=== PATIENT | female | born 2000 | race Caucasian/White ===

== ENCOUNTER 2020-01-12 09:52 | Emergency (ER) | payer OTHER, SELFPAY ==
[2020-01-12 10:30] VITALS: BP 126/77; PULSE 77; RESP 18; TEMP 37; O2SAT 98; BMI 21.9
--- NOTE | 2020-01-12 10:45 | HMH.EDUTC ---
[facility] Clinical Impression: Encounter for laboratory testing for COVID-19 virus Disposition: Home, Self-Care Condition on Discharge: Good Instructions: Preventing the Spread of Coronavirus Discharge Instructions Additional Instructions: *Monitor Temp, Over the counter Motrin or Tylenol as directed/as needed Tylenol every 4 hours and Motrin every 6 hours (as long as your family doctor has told you that you can take it) for fever or pain. and straight to ER if unable to lower temp less than 101.0 after medication given *Warm salt water gargles may help to soothe the throat *Throat Lozenges *Warm fluids like tea with honey may help to soothe the throat *Sleep elevated *Humidifier/Vaporizer *Flonase 2 sprays in each nostril daily but be aware that it may take 2-3 days before you notice improvement Follow up IMMEDIATELY for new or worsening symptoms or no Noticeable improvement over the next 48-72 hours. 911 for difficulty breathing or swallowing You was tested for today for COVID19 your test result should be back in the next 24-48 hours, you may call to the [facility] tomorrow to see if your test results are back and the result [phone] [facility] hours are 9am-9pm You was given a handout with instructions for Self Quarantine and Self isolation for while you wait on test results and what to do if they are positive If you are positive the Health Dept will be contacting you also Referrals: Jhoan Beasley MD [Primary Care Provider] - As needed Forms: Work/School Release Time of Disposition: 10:47 Medical Decision Making - Rowdy Inquiry Pt receiving controlled substance: No Rowdy was queried for this patient: No Vital Signs: 01/12/20 10:30 Temperature 98.6 F Temperature Source Oral Pulse Rate [Right Brachial] 77 Respiratory Rate 18 Blood Pressure [Right Arm] 126/77 Blood Pressure Mean [Right Arm] 93 Blood Pressure Source [Right Arm] Automatic Cuff Blood Pressure Position [Right Arm] Sitting 02 Sat by Pulse Oximetry 98 Oxygen Delivery Method Room Air Orders (Tests/Meds): ORDERS Category Date Time Status Covid-19 Nasal PCR Sendout [facility] 01/12/20 10:19 [place] [facility] [place] - General Stated complaint: Covid test Time Seen by Provider: 01/12/20 10:45 Mode of Arrival: Ambulatory Source of Information: Patient Limitations: No Limitations Description of Symptoms (Recalled from Triage Doc. by RN): PATIENT REQUESTING COVID TEST FOR WORK. 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 I have reviewed the patient's past medical history: Yes - Social History Alcohol Intake: never Occupational Status: other ROS Obtained: Yes All systems reviewed & no additional complaints, Yes Systems reviewed as appropriate & no additional complaints - Constitutional Constitutional: Reports system reviewed and no additional complaints, except as docu, Denies body ache, Denies chills, Denies fever(s), Denies headache(s) - ENT Ears, Nose, Mouth, and Throat: Reports system reviewed and no additional complaints, except as do
[2020-01-12 10:58] VITALS: BP 126/77; PULSE 77; RESP 18; TEMP 37; O2SAT 98
[2020-01-13 15:53] LABS: Covid-19 Nasal PCR Sendout Lex Not Detected
== END 2020-01-12 11:00 | disposition home or self-care (01) ==
PROVIDERS: Emergency Provider Nurse Practitioner; PCP Specialist
DX: Z20.828 Contact with and (suspected) exposure to other viral communicable diseases (principal)
CPT/HCPCS: 99201; U0004

== ENCOUNTER 2020-09-20 23:26 | Emergency (ER) | payer BC, SELFPAY ==
[2020-09-20 23:27] VITALS: BP 125/78; PULSE 72; RESP 16; TEMP 36.8; O2SAT 99; BMI 21.1
[2020-09-20 23:33] VITALS: BMI 21.4
[2020-09-20 23:37] LABS: Microscopic, Urine URINE MICROSCOPIC (MICROSCOPIC)
[2020-09-20 23:40] LABS: Appearance,Urine SL CLOUDY (Clear); Bilirubin,Urine Negative (Negative); Blood, Urine 2+ (Negative); Color,Urine YELLOW (Yellow); Glucose,Urine (UA) Negative (Negative); Ketones,Urine TRACE (Negative); Leukocyte Esterase,Urine Negative (Negative); Nitrate,Urine Negative (Negative); Protein,Urine Negative (Negative); Urobilinogen,Urine 0.2 EU/dl (0.2)
[2020-09-20 23:42] LABS: Urine Pregnancy, HCG Qual. Negative (Negative)
[2020-09-20 23:57] LABS: Bacteria,Urine 1+ /lpf
--- NOTE | 2020-09-21 00:01 | CT_ITS ---
PROCEDURE INFORMATION: Exam: CT Abdomen And Pelvis With Contrast Exam date and time: 09/21/2020 12:01 AM Age: 19 years old Clinical indication: Abdominal pain; Epigastric; Additional info: Midepigastric pain TECHNIQUE: Imaging protocol: Computed tomography of the abdomen and pelvis with contrast. Radiation optimization: All CT scans at this facility use at least one of these dose optimization techniques: automated exposure control; mA and/or kV adjustment per patient size (includes targeted exams where dose is matched to clinical indication); or iterative reconstruction. Contrast material: ISOVUE; Contrast volume: 75 ml; Contrast route: IV; COMPARISON: No relevant prior studies available. FINDINGS: Lungs: No bibasilar consolidation. Liver: 1.2 cm too small to characterize hypodensity in the left hepatic lobe. Gallbladder and bile ducts: No calcified stones. No ductal dilation. Pancreas: Non-specific soft tissue fullness in the region of pancreatic head. Spleen: Unremarkable. Adrenal glands: No mass. Kidneys and ureters: Few punctate nonobstructing right renal calculi. No hydronephrosis. Stomach and bowel: Nonobstructive bowel gas pattern. Appendix: Unremarkable appendix. Intraperitoneal space: No pneumoperitoneum. No ascites. Vasculature: No abdominal aortic aneurysm. Lymph nodes: No enlarged lymph nodes. Urinary bladder: Unremarkable as visualized. Reproductive: Unremarkable as visualized. Bones/joints: No suspicious osseous lesion. No acute fracture. Soft tissues: No suspicious mass. IMPRESSION: Non-specific soft tissue fullness in the region of pancreatic head. This is nonspecific, possibly early pancreatitis, however mass lesion is possible. Recommend correlation with MRI pancreas.
[2020-09-21 00:03] LABS: Basophils # 0.1 K/mm3 (0-0.2); Basophils % 0.5 % (0.1-2.0); Eosinophils # 0.1 K/mm3 (0.0-0.4); Eosinophils % 1.3 % (0.1-12.0); Hematocrit 38.5 % (37.0-47.0); Hemoglobin 13.4 g/dL (12.2-16.2); Lymphocytes # 2.3 K/mm3 (0.7-4.5); Lymphocytes % 23.2 % (10-50); Mean Corpuscular HGB Conc 34.8 g/dL (31.8-35.4); Mean Corpuscular Hemoglobin 30.3 pg (27.0-31.2); Mean Corpuscular Volume 87.1 fl (81-99); Monocytes # 0.6 K/mm3 (0.1-1.0); Monocytes % 6.5 % (1.7-9.3); Neutrophils # 6.8 K/mm3 (1.8-7.8); Neutrophils % 68.5 % (37.0-80.0); Platelet Count 258 K/mm3 (142-424); Red Blood Count 4.42 M/mm3 (4.20-5.40); White Blood Count 9.9 K/mm3 (4.5-13.0)
--- NOTE | 2020-09-21 00:10 | PC.NURSE ---
pt finished oral contrast.
[2020-09-21 00:14] LABS: Alanine Aminotransferase 13 U/L (12-78); Albumin Level 4.4 g/dl (3.5-5.0); Albumin/Globulin Ratio 1.6 (1.1-1.8); Alkaline Phosphatase 80 U/L (38-126); Amylase 84 U/L (30-110); Anion Gap 14.8 mEq/L (5-15); Aspartate Amino Transferase 22 U/L (14-36); Bilirubin,Total 0.7 mg/dl (0.2-1.3); Blood Urea Nitrogen 16 mg/dl (7-17); Calcium 8.7 mg/dl (8.4-10.2); Carbon Dioxide 24 mmol/L (22.0-30.0); Chloride 107 mmol/L (98-107); Creatinine Clearance Estimated 116 mL/min (50-200); Estimated Glomerular Filt Rate 91 ml/min (>60); GFR (African American) 111 ML/MIN (>60); Globulin 2.7 g/dL (1.3-3.2); Glucose 93 mg/dl (74-100); Lipase 125 U/L (23-300); Potassium 3.8 mmoL/L (3.5-5.1); Sodium 142 mmol/L (136-145); Total Protein,Serum 7.1 g/dl (6.3-8.2)
[2020-09-21 00:31] LABS: Erythrocyte Sedimentation Rate 13 mm/hr (0-20)
--- NOTE | 2020-09-21 00:48 | HMH.EDNVD ---
ED Disposition Clinical Impression: Abdominal pain Qualifiers: Abdominal location: epigastric Qualified Code(s): R10.13 - Epigastric pain Disposition: Home, Self-Care Condition on Discharge: Good Instructions: DI for Acute Abdominal Pain Additional Instructions: please call pcp for follow up Referrals: Jhoan Beasley MD [Primary Care Provider] - - Critical Care Critical Care Time: No Attestation: On 09/20/20, the high probability of a clinically significant, sudden or life threatening deterioration of the following system(s) required my full and direct attention, intervention and personal management. The time I documented below is in addition to time spent performing reported procedures but includes the following listed in this critical care notation. Medical Decision Making - Medical Records Medical records reviewed: Yes: I reviewed the patient's medical records. - Rowdy Inquiry Pt receiving controlled substance: No Vital Signs: 09/20/20 23:27 09/21/20 01:57 09/21/20 02:00 Temperature 98.3 F Temperature Source Oral Pulse Rate 84 68 Pulse Rate [Right] 72 Respiratory Rate 16 Blood Pressure 108/47 L 104/51 L Blood Pressure [Right Arm] 125/78 Blood Pressure Mean 74 69 Blood Pressure Mean [Right Arm] 93 02 Sat by Pulse Oximetry 99 99 98 09/21/20 02:30 Temperature Temperature Source Pulse Rate 73 Pulse Rate [Right] Respiratory Rate Blood Pressure 100/53 L Blood Pressure [Right Arm] Blood Pressure Mean 63 Blood Pressure Mean [Right Arm] 02 Sat by Pulse Oximetry 98 - Lab Data Lab results reviewed: Yes: I reviewed the patient's lab results. Lab Results 09/20/20 23:32: Urine Color Yellow, Urine Appearance Sl cloudy, Urine pH 7.0, Ur Specific [place] 1.020, Urine Protein Negative, Urine Glucose (UA) Negative, Urine Ketones Trace, Urine Blood 2+, Urine Nitrate Negative, Urine Bilirubin Negative, Urine Urobilinogen 0.2, Ur Leukocyte Esterase Negative, Urine RBC 5-10, Urine WBC 3-5, Ur Squamous Epith Cells 3-5, Urine Bacteria 1+ 09/20/20 23:32: Urine HCG, Qual Negative 09/20/20 23:32: Urine Opiates Screen Negative, Urine Methadone Screen Negative, Ur Barbituates Screen Negative, Ur Phencyclidine Scrn Negative, Ur Amphetamines Screen Negative, U Benzodiazepines Scrn Negative, Urine Cocaine Screen Negative, U Marijuana (THC) Screen Negative 09/20/20 23:56: WBC 9.9, RBC 4.42, Hgb 13.4, Hct 38.5, MCV 87.1, MCH 30.3, MCHC 34.8, RDW 13.0, Plt Count 258, MPV 9.0, Neut % (Auto) 68.5, Lymph % (Auto) 23.2, [place] % (Auto) 6.5, Eos % (Auto) 1.3, Baso % (Auto) 0.5, Neut # (Auto) 6.8, Lymph # (Auto) 2.3, [place] # (Auto) 0.6, Eos # (Auto) 0.1, Baso # (Auto) 0.1, ESR 13 09/20/20 23:56: Sodium 142, Potassium 3.8, Chloride 107, Carbon Dioxide 24, Anion Gap 14.8, BUN 16, Creatinine 0.80, Estimated Creat Clear 116, Estimated GFR 91, Est GFR ( Amer) 111, Glucose 93, Calcium 8.7, Total Bilirubin 0.7, AST 22, ALT 13, Alkaline Phosphatase 80, C-Reactive Protein 9.0 H, Total Protein 7.1, Albumin 4.4, Globulin 2.7, Albumin/Globulin Ratio 1.6, Amylase 84, Lipase 125 Result diagrams: 09/20/20 23:56 09/20/20 23:56 Orders (Tests/Meds): ED MEDICATIONS Generic Name Dose Route Start Last Admin Trade Name Freq PRN Reason Stop Dose Admin Sodium Chloride 1,000 mls @ 999 mls/hr 09/20/20 23:45 09/20/20 23:53 Sod Chlor 0.9% 1000ml Bag IV 09/21/20 00:45 999 mls/hr .Q1H1M [place] Administration Sodium Chloride 8 ml 09/20/20 23:46 Sodium Chloride 0.9% 10ml Vial IV 10/20/20 23:45 NEEDED PRN dilute pepcid Discontinued Medications Generic Name Dose Route Start Last Admin Trade Name Freq PRN Reason Stop Dose Admin Diatrizoate Meglum/Diatrizoate Sod 30 ml 09/20/20 23:35 09/20/20 23:52 Diatrizoate Antonella 66% & Diatrizoate Na 10% 30ml Udc PO 09/20/20 23:36 30 ml ONCE ONE Administration Famotidine 20 mg 09/20/20 23:46 09/20/20 23:53 Famotidine 20mg/2ml Vial IV
[2020-09-21 00:56] LABS: Barbiturates Screen,Urine Negative ng/ml (<200); Benzodiazepines Screen,Urine Negative ng/ml (<200)
[2020-09-21 00:57] LABS: Amphetamine/Metha Screen,Urine Negative ng/ml (<1000); Cannabinoid Screen,Urine Negative ng/ml (<50)
[2020-09-21 00:58] LABS: Cocaine Screen,Urine Negative ng/ml (<300)
[2020-09-21 00:59] LABS: Methadone Screen,Urine Negative ng/ml (<300); Opiate Screen,Urine Negative ng/ml (<300)
[2020-09-21 01:00] LABS: Phencyclidine Screen,Urine Negative ng/ml (<25)
[2020-09-21 01:57] VITALS: BP 108/47; PULSE 84; O2SAT 99
[2020-09-21 02:00] VITALS: BP 104/51; PULSE 68; O2SAT 98
[2020-09-21 02:30] VITALS: BP 100/53; PULSE 73; O2SAT 98
[2020-09-21 03:17] VITALS: BP 109/58; PULSE 73; RESP 16; TEMP 36.7; O2SAT 99
== END 2020-09-21 03:19 | disposition home or self-care (01) ==
PROVIDERS: Emergency Provider Emergency Medicine; PCP Specialist
DX: R10.13 Epigastric pain (principal)
CPT/HCPCS: 74177; 80053; 80305; 81001; 81025; 82150; 83690; 85025; 85651; 86140; 96365; 96375; 99283; J2405; Q9967

== ENCOUNTER 2020-10-05 11:45 | Emergency (ER) | payer BC, SELFPAY ==
--- NOTE | 2020-10-05 12:42 | HMH.EDUTC ---
[facility] [place] Clinical Impression: Seasonal allergies, Exposure to COVID-19 virus Disposition: Home, Self-Care Condition on Discharge: Good Instructions: Allergic Rhinitis, Preventing the Spread of Coronavirus Discharge Instructions Additional Instructions: Drink plenty of fluids. Take tylenol for pain or fever. Return if you begin to have difficulty breathing. Follow up with your regular doctor. GO TO THE ER FOR ANY WORSENING SYMPTOMS Quarantine until you know the results of your covid-19 test. If it is positive, the health department should call you and give you further instructions about your length of Quarantine and other thing. Prescriptions: Fluticasone Propionate [Flonase 50mcg nasal spray 16gm] 1 spr NS BID 30 Days #1 bottle Transmission Status: Received by [id number] Cetirizine HCl [Zyrtec] 10 mg PO DAILY 30 Days #30 cap Transmission Status: Received by [id number] Referrals: Provider,Referral, [Primary Care Provider] - Forms: Work/School Release Time of Disposition: 12:53 Medical Decision Making - Medical Records Medical records reviewed: No: I reviewed the patient's medical records. - Rowdy Inquiry Pt receiving controlled substance: No Vital Signs: 10/05/20 13:00 10/05/20 13:35 Temperature 98.2 F 98.2 F Temperature Source Oral Pulse Rate 87 Pulse Rate [Left] 87 Respiratory Rate 16 16 Blood Pressure 114/75 Blood Pressure [Right Arm] 113/75 Blood Pressure Mean [Right Arm] 87 02 Sat by Pulse Oximetry 98 [facility] [place] - General Stated complaint: covid test Time Seen by Provider: 10/05/20 12:42 - History of Present Illness Provider Complaint: She states that she was at her work this morning when she started having nasal congestion. She states that she has a history of seasonal allergies and she thinks that is what's going on now. She denies any known covid exposure. She denies that she feels bad in any way. She denies fever/chills/body aches. - Related Data Previous Rx's Medication Instructions Recorded Cetirizine HCl [Zyrtec] 10 mg PO DAILY 30 Days #30 cap 10/05/20 Fluticasone Propionate [Flonase 1 spr NS BID 30 Days #1 bottle 10/05/20 50mcg nasal spray 16gm] Allergies Allergy/AdvReac Type Severity Reaction Status Date / Time No Known Allergies Allergy Verified 09/20/20 23:33 [facility] History - Hepatitis A Screen Attestation statement:: This patient has been screened for Hepatitis A risk factors. I have reviewed the patient's past medical history: Yes - Social History Alcohol Intake: never Occupational Status: employed ROS Obtained: Yes All systems reviewed & no additional complaints - Constitutional Constitutional: Denies chills, Denies fever(s), Denies poor appetite, Denies malaise - Eyes Eyes: Reports itchy eyes - ENT Ears, Nose, Mouth, and Throat: Reports as per HPI - Cardiovascular Cardiovascular: Denies chest pain - Respiratory Respiratory: Denies chest congestion, Reports cough, Denies dyspnea, Denies stridor, Denies wheezing - Musculoskeletal Musculoskeletal: Denies joint pain - Integumentary/Breasts Skin/Breast: Denies rash Physical Exam - General General appearance: alert, in no apparent distress - Head Head exam: atraumatic, normocephalic, normal inspection - Eye Eye exam: Present: normal appearance, PERRL, EOMI - ENT ENT exam: Present: normal exam, normal oropharynx, mucous membranes moist, TM's normal bilaterally, normal external ear exam - Neck Neck exam: Present: normal inspection, full ROM, trachea midline. Absent: meningismus, lymphadenopathy - Chest Chest inspection: Present: normal inspection, symmetric chest wall rise. Absent: tenderness - Respiratory Respiratory exam: Present: normal lung sounds bilaterally. Absent: respiratory distress - Cardiovascular Cardiovascular exam: Present: regular rate, normal rhythm. Absent: JVD - Abdominal Exam Abdom
[2020-10-05 13:00] VITALS: BP 113/75; PULSE 87; RESP 16; TEMP 36.8; O2SAT 98; BMI 21.1
[2020-10-05 13:35] VITALS: BP 114/75; PULSE 87; RESP 16; TEMP 36.8
--- NOTE | 2020-10-05 17:38 | PC.NURSE ---
pt notified with positive covid results.
== END 2020-10-05 13:36 | disposition home or self-care (01) ==
PROVIDERS: Emergency Provider Nurse Practitioner Family
DX: U07.1 COVID-19 (principal); J30.9 Allergic rhinitis, unspecified
CPT/HCPCS: 99203; G0463; U0003

== ENCOUNTER → 2021-03-25 16:01 | Outpatient (CLI) | payer BC, SELFPAY | PROVIDERS: PCP Specialist; Visit Provider Specialist | DX: Z11.1 Encounter for screening for respiratory tuberculosis (principal) ==

== ENCOUNTER → 2022-08-08 07:43 | Outpatient (CLI) | payer BC, SELFPAY ==
[2022-08-08 07:47] LABS: Microscopic, Urine URINE MICROSCOPIC (MICROSCOPIC)
[2022-08-08 08:06] LABS: Basophils % 0.2 % (0.1-2.0); Eosinophils # 0.1 K/mm3 (0.0-0.4); Eosinophils % 1.3 % (0.1-12.0); Hemoglobin 13.5 g/dL (12.2-16.2); Lymphocytes # 1.9 K/mm3 (0.7-4.5); Lymphocytes % 33.9 % (10-50); Mean Corpuscular Hemoglobin 28.7 pg (27.0-31.2); Mean Corpuscular Volume 86.9 fl (81-99); Mean Platelet Volume 9.3 fl (7.4-10.4); Monocytes # 0.4 K/mm3 (0.1-1.0); Monocytes % 7.4 % (1.7-9.3); Neutrophils # 3.2 K/mm3 (1.8-7.8); Neutrophils % 57.2 % (37.0-80.0); Platelet Count 283 K/mm3 (142-424); Red Blood Count 4.72 M/mm3 (4.20-5.40); Red Cell Distribution Width 13.1 % (11.5-17.5); White Blood Count 5.6 K/mm3 (4.8-10.8)
[2022-08-08 08:16] LABS: Appearance,Urine CLEAR (Clear); Bilirubin,Urine Negative (Negative); Blood, Urine TRACE-I (Negative); Color,Urine YELLOW (Yellow); Glucose,Urine (UA) Negative (Negative); Ketones,Urine Negative (Negative); Leukocyte Esterase,Urine Negative (Negative); Nitrate,Urine Negative (Negative); Protein,Urine Negative (Negative); Specific Gravity, Urine >= 1.030 (1.005-1.030); Urobilinogen,Urine 0.2 EU/dl (0.2)
[2022-08-08 08:31] LABS: Bacteria,Urine 1+ /lpf; Mucus,Urine Trace /lpf; WBC,Urine Occasional #/hpf (0-3)
[2022-08-08 08:41] LABS: Hemoglobin A1C 4.6 % (4.0-6.0)
[2022-08-08 08:44] LABS: Erythrocyte Sedimentation Rate 12 mm/hr (0-20)
[2022-08-08 09:56] LABS: Alanine Aminotransferase 19 U/L (12-78); Albumin Level 4.4 g/dl (3.5-5.0); Albumin/Globulin Ratio 1.8 (1.1-1.8); Alkaline Phosphatase 63 U/L (38-126); Amylase 77 U/L (30-110); Anion Gap 13.6 mEq/L (5-15); Aspartate Amino Transferase 26 U/L (14-36); Bilirubin,Total 0.5 mg/dl (0.2-1.3); Blood Urea Nitrogen 12 mg/dl (7-17); Calcium 9.2 mg/dl (8.4-10.2); Carbon Dioxide 28 mmol/L (22.0-30.0); Chloride 104 mmol/L (98-107); Chol/HDL Ratio 2.1 (1-3.5); Cholesterol 116 mg/dl (140-200); Estimated Glomerular Filt Rate 105 ml/min (>60); GFR (African American) 127 ML/MIN (>60); Globulin 2.4 g/dL (1.3-3.2); Glucose 85 mg/dl (74-100); HDL Cholesterol 56 mg/dl (40-60); Lipase 91 U/L (23-300); Potassium 4.6 mmoL/L (3.5-5.1); Sodium 141 mmol/L (136-145); Total Protein,Serum 6.8 g/dl (6.3-8.2); Triglycerides 72 mg/dl (30-150); VLDL Cholesterol 14 mg/dL (0-40)
[2022-08-08 10:07] LABS: Direct LDL Cholesterol 52.74 mg/dL (100-129)
[2022-08-08 10:12] LABS: 25-OH Vitamin D, Total 59.6 ng/mL (30-100)
[2022-08-08 10:27] LABS: Thyroid Stimulating Hormone 0.56 uIU/mL (0.465-4.68)
[2022-08-08 10:46] LABS: Vitamin B12 283 pg/mL (239-931)
[2022-08-08 10:58] LABS: Urine Pregnancy, HCG Qual. Negative (Negative)
[2022-08-09 23:34] LABS: Neisseria gonorrhoeae, NAA Negative (Negative)
[2022-08-23 07:58] LABS: HIV Screen 4th Generation wRfx Non Reactive
[2022-08-23 07:59] LABS: Neisseria gonorrhoeae, NAA NEGATIVE
== END ==
PROVIDERS: PCP Nurse Practitioner Family; Visit Provider Nurse Practitioner Family
DX: R10.13 Epigastric pain (principal); R53.83 Other fatigue; F32.A Depression, unspecified; F41.9 Anxiety disorder, unspecified; Z13.220 Encounter for screening for lipoid disorders; Z13.1 Encounter for screening for diabetes mellitus; Z79.899 Other long term (current) drug therapy
CPT/HCPCS: 36415; 80053; 80061; 81001; 81025; 82150; 82306; 82607; 83036; 83690; 84443; 85025; 85651; 86140; 86593; 86703; 87086; 87491; 87591; G0432

== ENCOUNTER → 2022-09-24 07:56 | Outpatient (CLI) | payer BC, SELFPAY ==
--- NOTE | 2022-09-24 07:56 | US_ITS ---
FINAL REPORT CLINICAL HISTORY: palpable RLQ mass with pain COMPARISON: None FINDINGS: Sonographic images of the abdomen were obtained. The liver has an unremarkable appearance with normal echogenicity. The gallbladder has an unremarkable appearance without evidence of gallstones. There is no evidence of biliary ductal dilatation. The common hepatic duct measures 3 mm, which is within normal limits. The pancreas is partially obscured. The spleen size is normal. The right kidney measures 9.9 in length. The left kidney measures 9.4 in length. There is normal renal echogenicity. There is no evidence of hydronephrosis. The aorta has an unremarkable appearance. Limited images of the inferior vena cava are unremarkable. No evidence of mass in the palpable region. IMPRESSION: No acute findings. No evidence of mass in the palpable region. Reviewed, Interpreted and Dictated by Darnell Keller III, MD Transcribed by Chuyita Whitmore Authenticated and [facility]
== END ==
LOC: RAD 07:56
PROVIDERS: PCP Nurse Practitioner Family; Visit Provider Nurse Practitioner Family
DX: R10.13 Epigastric pain (principal); R19.03 Right lower quadrant abdominal swelling, mass and lump
CPT/HCPCS: 76700

== ENCOUNTER 2023-07-12 09:45 | Outpatient (CLI) | payer BC, SELFPAY | END 2023-07-12 23:59 | disposition home or self-care (01) | LOC: RAD 09:46 | PROVIDERS: PCP Nurse Practitioner Family; Visit Provider Obstetrics & Gynecology | DX: N97.9 Female infertility, unspecified (principal) ==

== ENCOUNTER 2023-08-20 14:14 | Outpatient (CLI) | payer BC, SELFPAY ==
--- NOTE | 2023-08-20 14:18 | US_ITS ---
PROCEDURE: US TRANSVAGINAL CLINICAL INDICATION: Pelvic pain COMPARISON: CT CT ABDOMEN PELVIS W CON from 09/21/2020 US US ABDOMEN COMPLETE from 09/24/2022 FINDINGS: Transvaginal sonographic images of the pelvis were obtained. UTERUS: 7.5 cm x 4.3cmx 3.2cm anteverted with a combined endometrial thickness of 10.5mm. LEFT OVARY: 4.4cmx2.6 cmx2.5cm with a volume of 14.6ml. There is a corpus luteum in the left ovary measuring 2.2 cm x 1.3 cm x 1.6 cm. There is a follicle measuring 1.9 cm x 1.9 cm x 1.4 cm. There are multiple small peripheral follicles. RIGHT OVARY: 4.3cmx .32cmx2.2cm with a volume of 11.3ml. There is a corpus luteum in the right ovary measuring 1.5 cm X 1.7 cm x 2.2 cm, possibly a small hemorrhagic cyst. There are multiple small peripheral follicles. Both ovaries are seen and appear polycystic. Doppler flow to both ovaries are seen. There is a small amount of fluid in the cul-de-sac. IMPRESSION: 1. Anteverted uterus normal in shape and size. The endometrium is normal at 10.5 mm. It has a trilaminar appearance. 2. Both ovaries are seen and appear polycystic. Within the right ovary is a 2.2 cm possibly hemorrhagic cyst. 3. There is a small amount of fluid in the cul-de-sac. Dictated by: Aguila Reardon MD 08/20/2023 15:20 Aguila Reardon MD in [facility] 08/20/2023 15:20
== END 2023-08-20 23:59 | disposition home or self-care (01) ==
LOC: RAD 14:14
PROVIDERS: PCP Nurse Practitioner Family; Visit Provider Obstetrics & Gynecology
DX: R10.2 Pelvic and perineal pain (principal)
CPT/HCPCS: 76830

== ENCOUNTER 2023-10-02 10:48 | Outpatient (CLI) | payer BC, SELFPAY ==
[2023-10-02 11:16] LABS: Basophils % 0.3 % (0.1-2.0); Eosinophils # 0.1 K/mm3 (0.0-0.4); Eosinophils % 0.5 % (0.1-12.0); Hematocrit 38.9 % (37.0-47.0); Hemoglobin 13.1 g/dL (12.2-16.2); Lymphocytes # 2.2 K/mm3 (0.7-4.5); Lymphocytes % 21.9 % (10-50); Mean Corpuscular HGB Conc 33.7 g/dL (31.8-35.4); Mean Corpuscular Hemoglobin 30.8 pg (27.0-31.2); Mean Corpuscular Volume 91.5 fl (81-99); Mean Platelet Volume 9.5 fl (7.4-10.4); Monocytes # 0.5 K/mm3 (0.1-1.0); Monocytes % 4.5 % (1.7-9.3); Neutrophils # 7.3 K/mm3 (1.8-7.8); Neutrophils % 72.9 % (37.0-80.0); Platelet Count 273 K/mm3 (142-424); Red Blood Count 4.25 M/mm3 (4.20-5.40); Red Cell Distribution Width 13.5 % (11.5-17.5); White Blood Count 10.1 K/mm3 (4.8-10.8)
[2023-10-02 13:27] LABS: HIV (1&2) Antibody Rapid NONREACTIVE (NONREACTIVE)
[2023-10-03 09:14] LABS: Rubella Antibodies, IgG 1.08 index (Immune >0.99)
[2023-10-03 10:13] LABS: HCV Ab Non Reactive (Non Reactive); Hepatitis B Surface Antigen Negative (Negative)
[2023-10-03 13:41] LABS: Rapid Plasma Reagin Ab Titer Non Reactive titer (NonRea<1:1)
[2023-10-05 11:31] LABS: Neisseria gonorrhoeae, NAA Negative (Negative)
== END 2023-10-02 23:59 | disposition home or self-care (01) ==
LOC: LAB 10:49
PROVIDERS: PCP Nurse Practitioner Family; Visit Provider Obstetrics & Gynecology
DX: Z34.90 Encounter for supervision of normal pregnancy, unspecified, unspecified trimester (principal)
CPT/HCPCS: 86803; 86703; 36415; 85025; 86593; 86762; 86850; 87086; 87340; 87491; 87591

== ENCOUNTER 2023-12-30 12:25 | Outpatient (CLI) | payer BC, SELFPAY ==
--- NOTE | 2023-12-30 12:26 | US_ITS ---
PROCEDURE: US OB /MATERNAL DETAIL CLINICAL INDICATION: 20 week US OB Complete-Anatomy Scan COMPARISON: US US TRANSVAGINAL from 08/20/2023 FINDINGS: Transabdominal sonographic images of the pelvis were obtained. From her established due date she is 20 weeks 3 days. Single viable intrauterine gestation. Breech position. Placenta: Posteriorplacenta grade 1. There is a placental Toussaint seen. There is an average amount of fluid. The cervix appears satisfactory. Closed and measuring 3.5 cm in length. Complete survey performed and was unremarkable on the submitted images as in PACS. No discrete anomalies identified on survey imaging by technologist. Active fetus.. Three-vessel cord with satisfactory umbilical cord insertion. 4- chamber heart noted. Situs, aortic arch, LVOT, RVOT, three-vessel view appear normal. Survey of brain & ventricles Unremarkable. Cerebellum, thalamus, choroid plexus, cisterna magna appear normal. Face and neck survey unremarkable. Profile, nasion, lips and nose appeared normal. Diaphragm and chest views unremarkable. Abdomen: Both kidneys noted and unremarkable. Stomach and bladder noted and satisfactory. Spine: Survey of the spine satisfactory with no anomalies identified nor imaged. Cervical, thoracic, lower spine appear normal. Both arms and legs noted. Amniotic Fluid: Adequate. MVP 3.42 cm. Measurements: Average ultrasound age 20weeks 3days. Estimated due date by ultrasound age 0305/15/2024. Estimated weight 344g BPD = 20weeks 4days HC = 20weeks 2days AC = 20weeks 5days FL = 20weeks 0 days Growth Percentile= 37 Heart Rate = 147bpm Cerebellum = 19weeks 6days Humerus = 20weeks 1day HC/AC is 1.15 FL/BPD is 0.66 FL/AC is 0.21 IMPRESSION: 1. Viable fetus in the breech presentation with a posterior placenta grade 1. 2. The fluid is within normal limits with an MVP 3.42 cm. 3. Anatomical scan appears normal. 4. biometry is consistent with the dates. Dictated by: Aguila Reardon MD 12/30/2023 14:10 Aguila Reardon MD in [facility] 12/30/2023 14:10
== END 2023-12-30 23:59 | disposition home or self-care (01) ==
PROVIDERS: PCP Nurse Practitioner Family; Visit Provider Obstetrics & Gynecology
DX: Z36.3 Encounter for antenatal screening for malformations (principal); Z3A.20 20 weeks gestation of pregnancy
CPT/HCPCS: 76811

== ENCOUNTER 2024-01-10 08:22 | Outpatient (CLI) | payer BC, SELFPAY ==
--- NOTE | 2024-01-10 08:23 | US_ITS ---
PROCEDURE: US OB TRANSVAGINAL CLINICAL INDICATION: Cramping in Early COMPARISON: CT CT ABDOMEN PELVIS W CON from 09/21/2020 US US ABDOMEN COMPLETE from 09/24/2022 US US TRANSVAGINAL from 08/20/2023 FINDINGS: Transabdominal and transvaginal sonographic images of the pelvis were obtained. The following parameters are obtained: From her established due date she is 22weeks 0 days Viable fetus in the cephalic presentation with a posterior placenta grade 1. There is a placental Toussaint. The cervix measures 4.4 cm seen transvaginally. heart rate: 153bpm bpm. Amniotic fluid: Subjectively appears normal It appears that the left ovary may be in the pelvis posterior to the cervix. No fluid in the cul-de-sac. Anatomical scan was not performed. IMPRESSION: 1. Viable fetus in the cephalic presentation with a posterior placenta grade 1. 2. Subjectively the fluid appears normal. 3. Cervix is measured transvaginally 4.4 cm in length. 4. The left ovary appears to be posterior to the cervix. 5. No fluid in the cul-de-sac. Dictated by: Aguila Reardon MD 01/10/2024 18:38 Aguila Reardon MD in [facility] 01/10/2024 18:38
== END 2024-01-10 23:59 | disposition home or self-care (01) ==
LOC: RAD 08:23
PROVIDERS: PCP Nurse Practitioner Family; Visit Provider Obstetrics & Gynecology
DX: O26.892 Other specified pregnancy related conditions, second trimester (principal); R10.9 Unspecified abdominal pain; Z3A.22 22 weeks gestation of pregnancy; Z36.86 Encounter for antenatal screening for cervical length
CPT/HCPCS: 76817

== ENCOUNTER 2024-01-25 20:32 | Emergency (ER) | payer BC, SELFPAY ==
[2024-01-25 20:34] VITALS: BP 144/81; PULSE 74; RESP 18; TEMP 36.8; O2SAT 100; BMI 23.1
--- NOTE | 2024-01-25 21:27 | ED_ITS ---
Discharge Plan Disposition Patient Disposition: Home, Self-Care Prescriptions Prescriptions: New nystatin 100,000 unit/gram cream 1 applic topical TID 7 Days Qty: 30 0RF Rx Instructions: apply until there is healing No Action Classic 28 mg iron- 800 mcg tablet 1 tab PO .glen Qty: 30 4RF promethazine 12.5 mg tablet 12.5 mg PO TID PRN (Reason: nausea and vomiting) Qty: 30 1RF Referrals Follow up/Referrals: Carmen Aden APRN [Primary Care Provider] - See instructions Activity Restrictions/Add. Instructions Additional Instructions/Restrictions: As discussed without doing an exam I cannot definitively tell you that this is candidal vaginitis. With your history I suspect this is most likely contact vaginitis. However given the fact that azoles have not worked for you in the past I question the diagnosis however we will try topical nystatin please follow-up with your [employer] doctor as previously instructed Clinical Impressions Clinical Impression: Vaginitis Instructions Patient Instructions: DI for Urinary Tract Infection (UTI), DI for Urinary Tract Infection in Children Print Language Print Language: Montenegrin Discharge ED Provider: Khoi Bradley General Adult HPI General Chief complaint: Urogenital-Female Stated complaint: 24 wks antepartum suspected yeast infection Time Seen by Provider: 01/25/24 21:05 Mode of Arrival: Ambulatory Source of Information: Patient Limitations: No Limitations Description of Symptoms (Recalled from ER Triage Doc. by RN): Pt presents to ED for a possible yeast infection. Pt is 24 weeks . Pt states Monistat does not work for her. Pt is A&O*4. History of Present Illness HPI narrative: Patient is a 23-year-old female who is 24 weeks feeling the baby move no loss of fluid no vaginal bleeding vaginal discharge or contractions who presents today with what she believes is a yeast infection. States she has had numerous in the past has not been on any antibiotics recently from historical standpoint she states that any type of contact irritation causes inflammatory response and she first was diagnosed at the age of 13 when she had curdy white discharge which was consistent with yeast infection but now even very mild soaps etc. will cause this. Related Data Previous Rx's ?Medication ?Instructions ?Recorded vits no.126-ferrous fum 1 tab PO .carroll #30 tabs 10/02/23 28 mg iron-folic acid 800 mcg tablet (Classic ) promethazine 12.5 mg tablet 12.5 mg PO TID PRN nausea and 10/03/23 vomiting #30 tabs nystatin 100,000 unit/gram topical 1 applic topical TID 7 days #30 01/25/24 cream grams Allergies Allergy/AdvReac Type Severity Reaction Status Date / Time No Known Allergies Allergy Verified 01/15/24 09:46 [facility] Disclaimer: The information contained in this section may have been updated after the patient was seen, as this information can be updated by other users. Medical History Depression GERD (gastroesophageal reflux disease) Constipation Anxiety Surgical History No significant past surgical history Family History Father Heart attack Other Alcoholism Diabetes FHx: mental illness Hypertension Substance abuse Social History Smoking Status: Never smoker years smoked: 2 alcohol intake: current alcohol intake frequency: a few times a month substance use type: denies use current occupational status: employed Travel in the last 8 weeks: None marital status: single number of children: 0 Other Medical History Have you received the Flu Vaccine for this season: No Have you received the Pneumonia Vaccine: No ROS Obtained: Yes All systems reviewed & no additional complaints except as documented Physical Exam General General appearance: alert Respiratory Respiratory exam: Present normal lung sounds bilaterally Cardiovascular Cardiovascular exam: Present regular rate Bimanual exam: Present other (Deferred) Neurological Exam Neurological exam: Present alert and oriented X3 Medical Decision Making Medical Records Screening: Per USPSTF and CDC recommendations, given the prevalence of disease in our region, it is our hospital?s policy to screen for HIV and viral Hepatitis for all patients aged 18 and over and those with ongoing risk factors. Rowdy Inquiry Pt receiving controlled substance: No Vital Signs: 01/25/24 20:34 Temperature 98.2 F Temperature Source Oral Pulse Rate [Left] 74 Respiratory Rate 18 Blood Pressure [Right Arm] 144/81 H Blood Pressure Mean [Right Arm] 102 02 Sat by Pulse Oximetry 100 Oxygen Delivery Method Room Air Orders (Tests/Meds): ORDERS Category Date Time Status POCUS Point of Care (ER Only) Stat Exams 01/25/24 21:00 Ordered Medical Decision Narrative: 23-year-old with a history of vaginitis I suspect most likely from contact in the setting of chemicals that are causing localized inflammation and irritation. She does not have any thick white discharge right now from historical standpoint I offered her an exam and told her that I could not differentiate etiologies without doing exam and she understood this but would like to follow- up closely with her [employer] doctor. Given the fact that Monistat has not worked for her we will try topical nystatin. I advised that she stay away from products that have dyes and chemicals and scents etc. She will follow-up closely with her outpatient [employer] doctor. Critical Care Critical Care Time Critical Care Time: No
[2024-01-25 21:28] VITALS: BP 118/72; PULSE 70; RESP 16; TEMP 36.6; O2SAT 98
== END 2024-01-25 21:30 | disposition home or self-care (01) ==
PROVIDERS: Emergency Provider Student in an Organized Health Care Education/Training Program; PCP Nurse Practitioner Family
DX: N76.0 Acute vaginitis (principal)
CPT/HCPCS: 99283

== ENCOUNTER 2024-02-28 07:22 | Outpatient (CLI) | payer BC, SELFPAY ==
[2024-02-28 08:48] LABS: Basophils % 0.2 % (0.1-2.0); Eosinophils % 0.2 % (0.1-12.0); Hematocrit 35.3 % (37.0-47.0); Hemoglobin 12.2 g/dL (12.2-16.2); Lymphocytes # 1.5 K/mm3 (0.7-4.5); Lymphocytes % 14.7 % (10-50); Mean Corpuscular HGB Conc 34.6 g/dL (31.8-35.4); Mean Corpuscular Hemoglobin 30.5 pg (27.0-31.2); Mean Corpuscular Volume 88.3 fl (81-99); Mean Platelet Volume 11.4 fl (7.4-10.4); Monocytes # 0.5 K/mm3 (0.1-1.0); Monocytes % 5.1 % (1.7-9.3); Neutrophils # 8.3 K/mm3 (1.8-7.8); Neutrophils % 79.3 % (37.0-80.0); Platelet Count 189 K/mm3 (142-424); Red Cell Distribution Width 13.2 % (11.5-17.5); White Blood Count 10.4 K/mm3 (4.8-10.8)
[2024-02-28 09:01] LABS: Glucose 1 Hour 109 mg/dL (74-100)
[2024-02-28 14:51] LABS: RPR W/RFX Titers Nonreactive (Nonreactive)
== END 2024-02-28 23:59 | disposition home or self-care (01) ==
PROVIDERS: PCP Nurse Practitioner Family; Visit Provider Obstetrics & Gynecology
DX: Z34.90 Encounter for supervision of normal pregnancy, unspecified, unspecified trimester (principal)
CPT/HCPCS: 36415; 82947; 85025; 86592

== ENCOUNTER 2024-04-03 08:49 | Outpatient (CLI) | payer MEDICAID, BC, SELFPAY ==
--- NOTE | 2024-04-03 08:50 | US_ITS ---
PROCEDURE: US OB BIOPHYSICAL PROFILE CLINICAL INDICATION: SGA COMPARISON: US US OB /MATERNAL DETAIL from 12/30/2023 US US OB TRANSVAGINAL from 01/10/2024 FINDINGS: Transabdominal sonographic images of the uterus were obtained. From her established due date she is 34weeks 0 days. The following parameters are obtained: Viable Fetus in the cephalic presentation with a posterior placenta grade 2. Average ultrasound age is 34weeks 5days Estimated weight 2,448g, 5 lb 6 oz The cervix measures 3.32 cm Measurements: heart Rate = 143bpm BPD = 35weeks 0 days HC = 34weeks 5days AC = 34weeks 5days FL = 34weeks 1day HC/AC is 1.01 FL/BPD is 0.76 FL/AC is 0.22 59 percentile Amniotic fluid index: 10.12cm, MVP 2.86 cm Qualitative AFV:2 Breathing movements: 2 Gross Body Movements: 2 Tone: 2 Biophysical profile score: 8 Doppler evaluation of the umbilical artery: SD ratio: 2.07-2.56. normal Resistive index: 0.55 No obvious anomalies evident.Kidneys, profile, stomach, bladder, four-chamber heart, three-vessel cord appear normal. IMPRESSION: 1. Viable fetus in the cephalic presentation with a posterior placenta grade 2. 2. The fluid is within normal limits with an amniotic fluid index 10.12 cm, MVP 2.86 cm. 3. Biophysical profile is 8/8 with good breathing movement and movement seen. 4. SD ratio is normal 2.07-2.56. 5. Limited anatomical scan appears normal. Dictated by: Aguila Reardon MD 04/04/2024 08:26 Aguila Reardon MD in [place] 04/04/2024 08:26
== END 2024-04-03 23:59 | disposition home or self-care (01) ==
LOC: RAD 08:50
PROVIDERS: PCP Nurse Practitioner Family; Visit Provider Obstetrics & Gynecology
DX: O36.5930 Maternal care for other known or suspected poor fetal growth, third trimester, not applicable or unspecified (principal); Z3A.34 34 weeks gestation of pregnancy
CPT/HCPCS: 76816; 76819; 76820

== ENCOUNTER 2024-04-23 12:55 | Outpatient (CLI) | payer MEDICAID, BC, SELFPAY | END 2024-04-23 23:59 | disposition home or self-care (01) | LOC: LAB.DROPOF 04-27 12:57 | PROVIDERS: PCP Nurse Practitioner Family; Visit Provider Obstetrics & Gynecology | DX: Z34.93 Encounter for supervision of normal pregnancy, unspecified, third trimester (principal) | CPT/HCPCS: 86403 ==

== ENCOUNTER 2024-05-07 09:17 | Inpatient (IN) | payer BC, MEDICAID, SELFPAY ==
[2024-05-07 09:23] VITALS: BMI 26.9
[2024-05-07 09:27] LABS: Microscopic, Urine URINE MICROSCOPIC (MICROSCOPIC)
[2024-05-07 09:30] LABS: Appearance,Urine CLEAR (Clear); Bilirubin,Urine Negative (Negative); Blood, Urine MODERATE (Negative); Color,Urine YELLOW (Yellow); Glucose,Urine (UA) Negative (Negative); Ketones,Urine Negative (Negative); Leukocyte Esterase,Urine SMALL (Negative); Nitrate,Urine Negative (Negative); PH,Urine 6.5 (5.0-8.5); Protein,Urine Negative (Negative); Urobilinogen,Urine 0.2 EU/dl (0.2)
[2024-05-07 09:40] LABS: Squamous Epithelial Cell,Urine Occasional #/hpf (0-5)
[2024-05-07 09:41] LABS: WBC,Urine Occasional #/hpf (0-3)
[2024-05-07 09:47] LABS: Fetal Membrane Rupture (Rapid) Negative (Negative)
[2024-05-07 09:49] LABS: Basophils % 0.3 % (0.1-2.0); Eosinophils % 0.3 % (0.1-12.0); Hematocrit 37.4 % (37.0-47.0); Hemoglobin 13.1 g/dL (12.2-16.2); Lymphocytes # 2.2 K/mm3 (0.7-4.5); Lymphocytes % 19.3 % (10-50); Mean Corpuscular Hemoglobin 30.4 pg (27.0-31.2); Mean Corpuscular Volume 86.8 fl (81-99); Mean Platelet Volume 12.7 fl (7.4-10.4); Monocytes % 8.2 % (1.7-9.3); Neutrophils # 8.3 K/mm3 (1.8-7.8); Neutrophils % 71.6 % (37.0-80.0); Platelet Count 174 K/mm3 (142-424); Red Blood Count 4.31 M/mm3 (4.20-5.40); Red Cell Distribution Width 13.3 % (11.5-17.5); White Blood Count 11.6 K/mm3 (4.8-10.8)
[2024-05-07] MEDS: LACTATED RINGERS 1000ML 1,000 ML 500 ML IV (10:23)
--- NOTE | 2024-05-07 10:36 | P.PNANES_ITS ---
[facility] Disclaimer: The information contained in this section may have been updated after the patient was seen, as this information can be updated by other users. Medical History Depression GERD (gastroesophageal reflux disease) Constipation Anxiety Surgical History No significant past surgical history Family History Father Heart attack Other Alcoholism Diabetes FHx: mental illness Hypertension Substance abuse Social History Smoking Status: Never smoker years smoked: 2 alcohol intake: current alcohol intake frequency: a few times a month substance use type: denies use current occupational status: employed Travel in the last 8 weeks: None marital status: single number of children: 0 Have you lived/traveled outside [place] in past 30 days?: No Contact w/someone who lives/traveled outside US past 30 days?: No Exposure to someone with infectious disease in past 14 days?: No Do you have a fever (greater than 100.4 F or 38 C)?: No Have you tested positive for COVID-19: No Exposed to someone with COVID-19 in past 14 days?: No Do you have a sore throat?: No Do you have a cough?: No Do you have any weakness?: No Do you have any diarrhea?: No Are you experiencing any unusual bleeding?: No Do you have any muscle aches/pain?: No Do you have any abdominal pain?: No Are you experiencing loss of taste or smell?: No [facility] Anesthesia Checklist Patient Identification Patient Identification: Arm Band Structural Data Admitted From: Inpatient Planned Operative Procedure/s: Labor Epidural Consent for Planned Operative Procedure(s) Verified: Yes Verified Documents: History and Physical Additional verifications Anesthesia Reactions: No Neurological Assessment Level of Consciousness: Awake, Alert and Appropriate Anesthesia Plan Anesthesia Risk discussed: Yes Anesthesia Plan: Verified ASA Class: II Anesthesia Type: Epidural
[2024-05-07 11:06] VITALS: BP 125/90; PULSE 75; RESP 19; TEMP 36.6; O2SAT 98; BMI 26.9
[2024-05-07 12:58] LABS: RPR W/RFX Titers Nonreactive (Nonreactive)
--- NOTE | 2024-05-07 14:14 | EXP.HP ---
History of Present Illness *Reason for visit:: Labor *History of present illness: Lia Neely is a 23-year-old at 38 weeks and 6 days gestation who presented to labor and delivery with regular painful contractions. Her has been uncomplicated. On presentation patient endorsed good movement and denies any leakage of fluid or vaginal bleeding. B+, antibody negative, rubella immune, hepatitis B negative, hepatitis C negative, RPR negative, HIV negative 1 hour GTT: 109 GBS negative PFSH PFS Disclaimer: The information contained in this section may have been updated after the patient was seen, as this information can be updated by other users. Medical History Depression GERD (gastroesophageal reflux disease) Constipation Anxiety Surgical History No significant past surgical history Family History Father Heart attack Other Alcoholism Diabetes FHx: mental illness Hypertension Substance abuse Social History (Updated 05/07/24 @ 11:18 by Skylar Hernandez RN) Smoking Status: Never smoker years smoked: 2 alcohol intake: current alcohol intake frequency: a few times a month substance use type: denies use current occupational status: employed Travel in the last 8 weeks: None marital status: single number of children: 0 Have you lived/traveled outside US in past 30 days?: No Contact w/someone who lives/traveled outside US past 30 days?: No Exposure to someone with infectious disease in past 14 days?: No Do you have a fever (greater than 100.4 F or 38 C)?: No Have you tested positive for COVID-19: No Exposed to someone with COVID-19 in past 14 days?: No Do you have a sore throat?: No Do you have a cough?: No Do you have any weakness?: No Are you experiencing any nausea/vomitting?: No Do you have any diarrhea?: No Are you experiencing any unusual bleeding?: No Do you have any muscle aches/pain?: No Do you have any abdominal pain?: No Are you experiencing loss of taste or smell?: No Other Medical History Have you received the Flu Vaccine for this season: No Have you received the Pneumonia Vaccine: No Review of Systems Review of Systems Review of systems (narrative): Review of Systems Constitutional: Denies fever, chills, and sweats Eyes: Denies vision change/ pain Respiratory: Denies cough and shortness of breath Cardiovascular: Denies chest pain and lightheadedness Gastrointestinal: Admits abdominal pain with contractions. Denies nausea, vomiting. Genitourinary: Denies dysuria and incontinence Musculoskeletal: Denies shoulder pain and back pain Neurological: Denies change in speech or headaches Meds Home Medications and Allergies Home Medications ?Medication ?Instructions ?Recorded ?Confirmed ?Type vits no.126-ferrous fum 1 tab PO DAILY 05/07/24 05/07/24 History 28 mg iron-folic acid 800 mcg tablet (Classic ) New Prescriptions to Start Prescriptions: Allergies Allergy/AdvReac Type Severity Reaction Status Date / Time No Known Allergies Allergy Verified 05/04/24 10:51 Exam Data for Last 24 hours Vital signs and Labs for Last 24 Hours: Temp Pulse Resp BP Pulse Ox O2 Del Method 97.9 F 75 19 125/90 98 Room Air 05/07/24 11:06 05/07/24 11:06 05/07/24 11:06 05/07/24 11:06 05/07/24 11:06 05/07/24 11:06 Laboratory Results - last 24 hr 05/07/24 09:01: Urine Color Yellow, Urine Appearance Clear, Urine pH 6.5, Ur Specific [place] 1.020, Urine Protein Negative, Urine Glucose (UA) Negative, Urine Ketones Negative, Urine Blood Moderate, Urine Nitrate Negative, Urine Bilirubin Negative, Urine Urobilinogen 0.2, Ur Leukocyte Esterase Small, Urine RBC None, Urine WBC Occasional, Ur Squamous Epith Cells Occasional, Membrane Rupture Negative 05/07/24 09:40: WBC 11.6 H, RBC 4.31, Hgb 13.1, Hct 37.4, MCV 86.8, MCH 30.4, MCHC 35.0, RDW 13.3, Plt Count 174, MPV 12.7 H, Neut % (Auto) 71.6, Lymph % (Auto) 19.3, [place] % (Auto) 8.2, Eos % (Auto) 0.3, Baso % (Auto) 0.3, Neut # (Auto) 8.3 H, Lymph # (Auto) 2.2, [place] # (Auto) 1.0, Eos # (Auto) 0.0, Baso # (Auto) 0.0, RPR w/Rflx to Titer Nonreactive, Blood Type B Positive, Antibody Screen Negative I & O for Last 24 hours: Intake & Output 05/04/24 05/05/24 05/06/24 05/07/24 23:59 23:59 23:59 23:59 Weight 172 lb Narrative: General: patient is alert oriented in no acute distress and responds appropriately to questions. HEENT: NCAT, EOMI, moist mucous membranes, neck supple with full ROM Cardiovascular: RRR +S1/S2, no murmurs or rubs Pulmonary: Clear to auscultation bilaterally, nonlabored breathing, symmetric chest rise Abdominal: Gravid abdomen appropriate for gestation. No guarding, rebound, or tenderness noted. Extremities: trace edema, no tenderness or cyanosis noted Skin: Normal turgor, intact, warm. Negative for erythema, pallor, petechia, or lesions Neurologic: Negative for sensory or motor deficit Psychiatric: Normal affect, normal thought process, good judgment and insight, no depression or anxious mood appreciated. *Routine HEENT Exam Head: Present normocephalic and atraumatic Eye: Present EOMI, PERRL and normal accommodation; Absent conjunctival icterus, scleral injection, nystagmus or exophthalmos ENT: Present mucous membranes moist *Routine Respiratory Exam Respiratory: Present CTA bilaterally, normal respiratory effort, able to speak in complete sentences and symmetric chest movement; Absent accessory muscle use, decreased breath sounds, rales, respiratory distress, wheezes, distant breath sounds or diminished air movement *Routine Cardiovascular Exam Cardiovascular: Present RRR, Normal S1 and Normal S2; Absent murmur or gallop *Routine Abdominal Exam Abdominal: Present soft and normoactive bowel sounds; Absent tenderness, distended, rebound or guarding *Routine Rectal Exam Rectal:: deferred *Routine Genitalia Exam Genitalia:: normal female Assessment and Plan *Assessment and plan (1) Active labor: Status: Acute Category: Medical Plan - Monitor vitals - Admit to L&D for labor monitoring and delivery - Plan for augmentation of labor with AROM and pitocin if required. - External FHR and TOCO monitor - Exam on admission: 4-5/-2 - GBS neg/ Blood type: B+ - Hemoglobin: 13.1, Plt: 174 - Plan for epidural anesthesia - Anticipate vaginal delivery of male : Federica
[2024-05-07] MEDS: OXYTOCIN 10 UNITS/ML VIAL 10 UNIT IM (15:05)
--- NOTE | 2024-05-07 16:59 | EXP.DN ---
Delivery Note Delivery Date:: 05/07/24 Delivery Time:: 14:55 Anesthesia Type: Epidural Was labor medically induced?: No Induction method: none Gestational age (weeks): 38 delivered prior to 39 weeks?: Yes Justification for early elective delivery:: Active Labor Infant Gender: Male at 1 minute: 8 at 5 minutes: 9 Delivery Procedure:: Preoperative diagnosis: 1. at 38 completed this weeks gestation, vertex 2. Rh positive 3. GBS negative 4. Active labor Postoperative diagnosis: 1. at 38 completed this weeks gestation, vertex 2. Rh positive 3. GBS negative 4. Active labor EBL: 350mL Specimen: 1. Cord blood Findings: 1. Liveborn viable male : Federica. Apgars 8/9 at 1 and 5 minutes respectively. Weight pending 2. 2nd degree midline perineal laceration and right labial laceration Complications: None Procedure: Nonoperative spontaneous vaginal delivery Lia Neely is a 23-year-old G1, P0 who presented this morning in active labor. She continued to make progress on her own and progressed to complete without Pitocin augmentation. She had artificial rupture membranes at 8 cm revealing clear fluid. She received an epidural for anesthesia. With effective maternal expulsive effort there was a spontaneous vaginal delivery at 1455. No nuchal cord and no shoulder dystocia. was placed on maternal abdomen for greater than 1 minute and the cord was doubly clamped and cut by FOB. Cord blood was collected and sent for routine testing. The placenta delivered with cord traction and suprapubic countertraction. Pitocin was started IV but secondary to a painful IV site it was turned off and IM Pitocin was administered. Infant was placed on the breast to stimulate uterine contractions. The uterus was firm and bleeding was minimal. There was a second-degree perineal laceration noted as well as a right labial laceration. These were all repaired with 2-0 and 3-0 Vicryl in the normal standard fashion. Hemostasis was noted. Patient was counseled regarding the delivery and repair. All counts were correct. Mother and infant were doing well and bonding well with the delivery room Laceration:: vaginal Placental Delivery Description: Spontaneous
[2024-05-07] MEDS: ACETAMINOPHEN 500MG TAB 1000 MG PO ×2 (17:18→23:22)
[2024-05-07] MEDS: IBUPROFEN 400 MG TABLET 800 MG PO (17:18)
[2024-05-07] MEDS: BENZOCAINE-MENTHOL SPRAY 56GM CAN TP (17:30)
[2024-05-07] MEDS: WITCH HAZEL 40 PADS/BOX 1 EACH TP ×2 (17:31→22:38)
[2024-05-07 19:50] VITALS: BP 110/58; PULSE 86; RESP 17; TEMP 36.7; O2SAT 98
[2024-05-08 04:13] VITALS: BP 131/70; PULSE 83; RESP 17; TEMP 36.7; O2SAT 100
[2024-05-08] MEDS: IBUPROFEN 400 MG TABLET 800 MG PO ×3 (04:18→22:15)
[2024-05-08 06:10] LABS: Basophils % 0.2 % (0.1-2.0); Eosinophils # 0.1 K/mm3 (0.0-0.4); Eosinophils % 0.4 % (0.1-12.0); Hematocrit 33.6 % (37.0-47.0); Lymphocytes # 0.9 K/mm3 (0.7-4.5); Lymphocytes % 6.8 % (10-50); Mean Corpuscular HGB Conc 34.8 g/dL (31.8-35.4); Mean Corpuscular Hemoglobin 30.8 pg (27.0-31.2); Mean Corpuscular Volume 88.4 fl (81-99); Mean Platelet Volume 12.8 fl (7.4-10.4); Neutrophils # 11.5 K/mm3 (1.8-7.8); Neutrophils % 85.2 % (37.0-80.0); Platelet Count 126 K/mm3 (142-424); Red Cell Distribution Width 13.2 % (11.5-17.5); White Blood Count 13.5 K/mm3 (4.8-10.8)
[2024-05-08 06:22] LABS: Hemoglobin 11.6 g/dL (12.2-16.2)
[2024-05-08] MEDS: ACETAMINOPHEN 500MG TAB 1000 MG PO ×2 (09:09→19:12)
--- NOTE | 2024-05-08 10:09 | P.PN_ITS ---
Subjective *Date: 05/08/24 *Time: 10:09 Interval history: Lia Neely is a G1, P1 day #1 following a normal spontaneous vaginal delivery at 38 weeks and 6 days gestation. was uncomplicated. Routine delivery and course. She is doing well. I saw her this morning she had just gotten out of the shower. She is ambulating well. -Reports pain is well-controlled -Reports she is tolerating p.o. without nausea or vomiting. -Reports her lochia is moderate to light at this time. Reports that she had heavy bleeding until around lunchtime yesterday. -She is breast-feeding her male -Ambulating, voiding difficulty or dysuria. Denies chest pain shortness of breath or pain in her legs. No further complaints at this time. Exam Data for Last 24 hours Vital signs and Labs for Last 24 Hours: Temp Pulse Resp BP Pulse Ox O2 Del Method 98.0 F 83 17 131/70 100 Room Air 05/08/24 04:13 05/08/24 04:13 05/08/24 04:13 05/08/24 04:13 05/08/24 04:13 05/08/24 04:13 Laboratory Results - last 24 hr 05/07/24 09:40: RPR w/Rflx to Titer Nonreactive, Blood Type B Positive, Antibody Screen Negative 05/08/24 05:11: WBC 13.5 H, RBC 3.80 L, Hgb 11.6 L D, Hct 33.6 L, MCV 88.4, MCH 30.8, MCHC 34.8, RDW 13.2, Plt Count 126 L D, MPV 12.8 H, Neut % (Auto) 85.2 H, Lymph % (Auto) 6.8 L, [place] % (Auto) 7.0, Eos % (Auto) 0.4, Baso % (Auto) 0.2, Neut # (Auto) 11.5 H, Lymph # (Auto) 0.9, [place] # (Auto) 1.0, Eos # (Auto) 0.1, Baso # (Auto) 0.0 I & O for Last 24 hours: Intake & Output 05/05/24 05/06/24 05/07/24 05/08/24 23:59 23:59 23:59 23:59 Weight 172 lb Narrative: General: patient is alert oriented in no acute distress and responds appropriately to questions. Appears to be in minimal pain. Doing well HEENT: NCAT, EOMI, moist mucous membranes, neck supple with full ROM Cardiovascular: RRR +S1/S2, no murmurs or rubs Pulmonary: Clear to auscultation bilaterally, nonlabored breathing, symmetric chest rise Abdominal: Fundus below the umbilicus, firm, and tenderness appropriate for the period. : Perineum examined. Bilateral labia were very swollen but not discolored. Low concern for hematoma appears to be secondary to fluid shifts. Unable to thoroughly examine the vaginal porter as the labia were so swollen and tender. At time of delivery poor tissue for repair as it was friable and tearing. With fundal massage minimal vaginal bleeding noted. Extremities: trace edema, no tenderness or cyanosis noted Skin: Normal turgor, intact, warm. Negative for erythema, pallor, petechia, or lesions Neurologic: Negative for sensory or motor deficit Psychiatric: Normal affect, normal thought process, good judgment and insight, no depression or anxious mood appreciated. Assessment and Plan *Assessment and plan (1) Active labor: Status: Acute Category: Medical (2) (normal spontaneous vaginal delivery): Status: Acute Category: Medical Code(s): O80 - Encounter for full-term uncomplicated delivery Plan Stable. PPD#1 s/p -second-degree midline perineal laceration with a right labial laceration -Doing well. VSS. Serial lochia and fundal checks. -Continue with perineal ice packs for discomfort -Hemoglobin: 13.1--> 11.6 -B+/antibody negative -, male infant -Desires circumcision, peds to complete -Contraception: Discussed -Follow-up 2 weeks for routine visit -Dispo: home in 1-3 days pending mother/infant status Patient complained of swelling. Perineum examined. Bilateral labia were very swollen but not discolored. Low concern for hematoma. Encouraged continued ice packs and witch carlos. Unable to thoroughly examine the vaginal porter as the labia were so swollen and tender
[2024-05-08] MEDS: SENNA 8.6MG TABLET 8.6 MG PO (11:28)
--- NOTE | 2024-05-09 00:20 | EXP.DC.SUM ---
General Admission date:: 05/07/24 Discharge date: 05/09/24 HPI HPI HPI: PPD # 2 s/p Feeling well. Pain controlled. Breast feeding. Lochia is appropriate. Voiding without difficulty and passing flatus. Tolerating regular diet. Denies fever/chills, chest pain and shortness of breath. No headaches, vision changes, lightheadedness/dizziness. She admits vulvar swelling is getting better. Trace lower extremity swelling. Ambulating well ad rene. Hospital Course Hospital Course Hospital Course: Ms Lia Neley is a 23-year-old at 38 weeks and 6 days gestation who presented to labor and delivery with regular painful contractions. Her has been uncomplicated. GBS negative. Labor was augmented with amniotomy at 8 cm dilation. She had a normal spontaneous vaginal delivery on 05/07/24 at 1455. She delivered a live male baby, Federica, weighing 7lb 6 oz. APGARs 8 (1 min), 9 (5 min). EBL 350 mL. She did well . Pain controlled. Breast feeding. Light lochia. Voiding without difficulty and passing flatus. Tolerating regular diet. Denies fever/chills, chest pain and shortness of breath. No headaches, dizziness/lightheadedness or vision changes. Vital signs stable, afebrile. Heart regular rate and rhythm. Lungs clear to auscultation. Abdomen soft, nontender. Trace lower extremity edema. No calf tenderness. Ambulating well ad rene. Normal hospital course. She was discharged to home on PPD # 2 with instructions to follow-up in the office in 2 weeks or sooner if needed. Exam Data for Last 24 hours Vital signs and Labs for Last 24 Hours: Temp Pulse Resp BP Pulse Ox O2 Del Method 98.0 F 83 17 131/70 100 Room Air 05/08/24 04:13 05/08/24 04:13 05/08/24 04:13 05/08/24 04:13 05/08/24 04:13 05/08/24 04:13 Laboratory Results - last 24 hr 05/08/24 05:11: WBC 13.5 H, RBC 3.80 L, Hgb 11.6 L D, Hct 33.6 L, MCV 88.4, MCH 30.8, MCHC 34.8, RDW 13.2, Plt Count 126 L D, MPV 12.8 H, Neut % (Auto) 85.2 H, Lymph % (Auto) 6.8 L, Trigg % (Auto) 7.0, Eos % (Auto) 0.4, Baso % (Auto) 0.2, Neut # (Auto) 11.5 H, Lymph # (Auto) 0.9, Trigg # (Auto) 1.0, Eos # (Auto) 0.1, Baso # (Auto) 0.0 I & O for Last 24 hours: Intake & Output 05/06/24 05/07/24 05/08/24 05/09/24 23:59 23:59 23:59 23:59 Weight 172 lb Constitutional Constitutional: no acute distress and cooperative *Routine HEENT Exam Head: Present normocephalic and atraumatic Eye: Absent conjunctivae pink ENT: Present mucous membranes moist *Routine Neck Exam Neck: Present full ROM *Routine Respiratory Exam Respiratory: Present CTA bilaterally and normal respiratory effort *Routine Cardiovascular Exam Cardiovascular: Present RRR *Routine Abdominal Exam Abdominal: Present soft; Absent tenderness Comments: Uterine fundus firm and below umbilicus *Routine Rectal Exam Patient deferred: visual exam *Routine Exam Patient deferred: external exam *Routine Extremities Exam Extremities: Present edema (trace bilateral lower extremity edema) and full ROM; Absent calf tenderness *Routine Neurological Exam Neurological: Present alert, moving all extremities and normal speech Routine Psychiatric Exam Psychiatric: Present normal affect and cooperative Results Data Completed and Pending Labs on day of discharge: Labs from last 24 hours 05/08/24 05:11 WBC 13.5 H RBC 3.80 L Hgb 11.6 L D Hct 33.6 L MCV 88.4 MCH 30.8 MCHC 34.8 RDW 13.2 Plt Count 126 L D MPV 12.8 H Neut % (Auto) 85.2 H Lymph % (Auto) 6.8 L Trigg % (Auto) 7.0 Eos % (Auto) 0.4 Baso % (Auto) 0.2 Neut # (Auto) 11.5 H Lymph # (Auto) 0.9 Trigg # (Auto) 1.0 Eos # (Auto) 0.1 Baso # (Auto) 0.0 DS: Diagnosis Discharge Diagnosis (1) (normal spontaneous vaginal delivery): Status: Acute Code(s): O80 - Encounter for full-term uncomplicated delivery (2) Active labor: Status: Acute Meds Home Medications and Allergies Home Medications ?Medication ?Instructions ?Recorded ?Confirmed ?Type vits no.126-ferrous fum 1 tab PO DAILY 05/07/24 05/07/24 History 28 mg iron-folic acid 800 mcg tablet (Classic ) ibuprofen 800 mg tablet 800 mg PO Q8H PRN pain #20 tabs 05/09/24 Rx New Prescriptions to Start Prescriptions: Kandy Ojeda Allergies Allergy/AdvReac Type Severity Reaction Status Date / Time No Known Allergies Allergy Verified 05/04/24 10:51 Discharge Plan Disposition Patient Disposition: Home, Self-Care Discharge Order Discharge Orders: Discharge Order (Routine); Ordered 05/09/24 Ordered By: Kandy Martinez Follow up Plan Follow up with: Kandy Martinez DO [Staff Physician] - 2 weeks Prescriptions/Medication Reconciliation: New ibuprofen 800 mg tablet 800 mg PO Q8H PRN (Reason: pain) Qty: 20 0RF Continued Classic 28 mg iron- 800 mcg tablet 1 tab PO DAILY Problem Reconciliation Problems Reviewed?: Yes Patient Discharge Instructions ACTIVITY: Limited activity DIET: continue same diet and regular diet Additional Instructions: Congratulations!! Discharge: 1. Take 800 mg Ibuprofen every 8 hours as needed for pain. You can also take 500-1000 mg of Tylenol in between doses, every 6-8 hours. 2. Nothing in the vagina for 6 weeks - no intercourse, douching or tampons. No tub baths/hot tubs or swimming pools 3. Reasons to return to L&D or call On-Call doctor - fever (greater than 100.4) - heavy vaginal bleeding (soaking through 1 pad in less than 2 hours) - vaginal discharge (malodorous and/or purulent) - severe headaches not resolved by medication or rest and leg tenderness/edema 4. depression/blues - Normal to feel anxious/overwhelmed for first 2 weeks - Talk to your doctor if: severe anxiety, trouble bonding with baby, withdrawing from other family members, thoughts of harming yourself or others Kandy Martinez DO [facility] [phone] Print Language: Khmer Providers Primary Care Provider: Carmen Aden Admit Provider: Maryann Hadley Attending Provider: Maryann Hadley
[2024-05-09] MEDS: ACETAMINOPHEN 500MG TAB 1000 MG PO ×2 (04:13→09:08)
[2024-05-09] MEDS: BENZOCAINE-MENTHOL SPRAY 56GM CAN TP (04:13)
[2024-05-09 08:40] VITALS: BP 108/67; PULSE 92; RESP 18; TEMP 36.6; O2SAT 98
[2024-05-09] MEDS: IBUPROFEN 400 MG TABLET 800 MG PO (09:08)
[2024-05-09] MEDS: WITCH HAZEL 40 PADS/BOX 1 EACH TP (09:08)
== END 2024-05-09 10:30 | disposition home or self-care (01) | DRG 807 ==
LOC: OBOUT 09:18 → OB 09:18
PROVIDERS: Nurse Practitioner Obstetrics & Gynecology; Admitting Provider Obstetrics & Gynecology; PCP Nurse Practitioner Family; Visit Provider Obstetrics & Gynecology
DX: O70.1 Second degree perineal laceration during delivery (principal); Z37.0 Single live birth; Z3A.38 38 weeks gestation of pregnancy
CPT/HCPCS: 36415; 59025; 81001; 84112; 85025; 86592; 86850; 94761; G0283; J3010; J7120